=== PATIENT | male | born 1955 | race Caucasian/White ===

== ENCOUNTER 2019-05-16 08:42 | Outpatient (CLI) ==
[2016-02-06 11:55] VITALS: BMI 16.0
== END 2019-05-16 08:57 | disposition short-term general hospital (02) ==
LOC: AMBL 08:42
PROVIDERS: ATTEND Emergency Medicine
DX: R41.82 Altered mental status, unspecified (principal); R47.81 Slurred speech; R32 Unspecified urinary incontinence; H57.9 Unspecified disorder of eye and adnexa